=== PATIENT | male | born 1985 | race Two or more races ===

== ENCOUNTER 2023-09-27 10:34 | Emergency (ER) | payer MEDICAID, OTHER ==
[~2023-09-27] VITALS: Ht 172.7 cm; Wt 152.2 kg
[2023-09-27 12:58] VITALS: BP 129/64; PULSE 92; RESP 14; TEMP 97.6; O2SAT 96
[2023-09-27] MEDS: KETOROLAC TROMETH 60MG/2ML VIAL IM ONE (13:15)
[2023-09-27] MEDS ORDERED: CYCL-839 PO (13:17)
[2023-09-27] MEDS ORDERED: MELO-335 PO (13:17)
== END 2023-09-27 13:54 | disposition home or self-care (01) ==
LOC: ER 10:34
DX: M54.50 Low back pain, unspecified (principal); M79.602 Pain in left arm; M54.9 Dorsalgia, unspecified; V43.52XA Car driver injured in collision with other type car in traffic accident, initial encounter; Y93.89 Activity, other specified; Y92.89 Other specified places as the place of occurrence of the external cause; Y99.8 Other external cause status
CPT/HCPCS: 72110; 96372; 99283; J1885